=== PATIENT | female | born 1985 | race African-American/Black ===

== ENCOUNTER 2017-09-21 12:51 | Emergency (ER) | payer SELFPAY ==
[2017-09-21 12:52] VITALS: BP 165/98; PULSE 90; RESP 18; TEMP 97.8; O2SAT 97
--- NOTE | 2017-09-21 13:34 | PD ---
HPI Chief Complaint: Related Problem Time Seen by Provider: 13:34 Travel History International Travel<30 days: No Contact w/Intl Traveler<30days: No Traveled to known affect area: No History of Present Illness HPI 31-year-old female presents to the emergency department for evaluation of her . Patient took a positive test yesterday. Her last menstrual cycle was "sometime in July." She reports that with her previous pregnancies she got due to her blood type. She denies any abdominal pain. No vaginal bleeding or discharge. She has no other symptoms to report. PFSH Past Medical History Medical History: Denies Significant Hx ?: LMP: Beginning of July Social History Alcohol Use: No Tobacco Use: No Substance Use: No Allergies-Medications (Allergen,Severity, Reaction): Coded Allergies: No Known Allergies (Unverified , 09/21/17) Reported Meds & Prescriptions Reported Meds & Active Scripts Active Se-Sherry 19 29-1 mg ( Vit W/ Docusate-Fe Fu) 29 Mg Iron-1 Mg-25 Mg Tab 1 Tab PO DAILY Keflex (Cephalexin) 500 Mg Cap 500 Mg PO Q12H 7 Days Review of Systems Except as stated in HPI: all other systems reviewed are Neg Physical Exam Narrative GENERAL: Well-nourished female patient, ambulatory no acute distress. SKIN: Focused skin assessment warm/dry. HEAD: Atraumatic. Normocephalic. EYES: Pupils equal and round. No scleral icterus. No injection or drainage. ENT: No nasal bleeding or discharge. Mucous membranes pink and moist. NECK: Trachea midline. No JVD. CARDIOVASCULAR: Regular rate and rhythm. No murmur appreciated. RESPIRATORY: No accessory muscle use. Clear to auscultation. Breath sounds equal bilaterally. GASTROINTESTINAL: Abdomen soft, non-tender, nondistended. Hepatic and splenic margins not palpable. MUSCULOSKELETAL: No obvious deformities. No clubbing. No cyanosis. No edema. NEUROLOGICAL: Awake and alert. No obvious cranial nerve deficits. Motor grossly within normal limits. Normal speech. PSYCHIATRIC: Appropriate mood and affect; insight and judgment normal. Data Data Last Documented VS Vital Signs Date Time Temp Pulse Resp B/P (MAP) Pulse Ox O2 Delivery O2 Flow Rate FiO2 09/21/17 14:40 09/21/17 12:52 97.8 90 18 97 Orders Orders Beta Hcg (Quant/Titer) (09/21/17 13:04) Complete Blood Count With Diff (09/21/17 13:04) Basic Metabolic Panel (Bmp) (09/21/17 13:04) Complete Rh (09/21/17 13:04) Urinalysis - C+S If Indicated (09/21/17 13:04) Ed Urine Pregnancytest Poc (09/21/17 13:04) Urine Culture (09/21/17 13:10) Ed Poc Ultrasound (09/21/17 ) Ed Discharge Order (09/21/17 14:21) Labs Laboratory Tests Test 09/21/17 13:10 White Blood Count 4.8 TH/MM3 Red Blood Count 3.94 MIL/MM3 Hemoglobin 12.5 GM/DL Hematocrit 36.9 % Mean Corpuscular Volume 93.6 FL Mean Corpuscular Hemoglobin 31.6 PG Mean Corpuscular Hemoglobin Concent 33.8 % Red Cell Distribution Width 14.6 % Platelet Count 192 TH/MM3 Mean Platelet Volume 9.4 FL Neutrophils (%) (Auto) 65.0 % Lymphocytes (%) (Auto) 23.2 % Monocytes (%) (Auto) 8.6 % Eosinophils (%) (Auto) 2.4 % Basophils (%) (Auto) 0.8 % Neutrophils # (Auto) 3.1 TH/MM3 Lymphocytes # (Auto) 1.1 TH/MM3 Monocytes # (Auto) 0.4 TH/MM3 Eosinophils # (Auto) 0.1 TH/MM3 Basophils # (Auto) 0.0 TH/MM3 CBC Comment DIFF FINAL Differential Comment Urine Color YELLOW Urine Turbidity HAZY Urine pH 6.5 Urine Specific [place] 1.021 Urine Protein NEG mg/dL Urine Glucose (UA) NEG mg/dL Urine Ketones NEG mg/dL Urine Occult Blood SMALL Urine Nitrite NEG Urine Bilirubin NEG Urine Urobilinogen LESS THAN 2.0 MG/DL Urine Leukocyte Esterase MOD Urine RBC 3 /hpf Urine WBC 18 /hpf Urine Squamous Epithelial Cells 2 /hpf Urine Bacteria OCC /hpf Urine Mucus FEW /lpf Microscopic Urinalysis Comment CULTURE INDICATED Blood Urea Nitrogen 7 MG/DL Creatinine 0.63 MG/DL Random Glucose 86 MG/DL Calcium Level 8.4 MG/DL Sodium Level 138 MEQ/L Potassium Level 3.5 MEQ/L Chloride Level 107 MEQ/L Carbon Dioxide Level 23.7 MEQ/L Anion Gap 7 MEQ/L Estimat Glomerular Filtration Rate 133 ML/MIN Human Chorionic Gonadotropin, Quant 17197 MIU/ML [facility] Medical Decision Making Medical Screen Exam Complete: Yes Emergency Medical Condition: Yes Medical Record Reviewed: Yes Differential Diagnosis intrauterine versus ectopic versus UTI versus normal exam Narrative Course 31-year-old female presents to emergency department for evaluation of possible after taking an at home test yesterday. Patient appears without distress. Abdominal exam is benign. Laboratory Tests Test 09/21/17 13:10 White Blood Count 4.8 TH/MM3 Red Blood Count 3.94 MIL/MM3 Hemoglobin 12.5 GM/DL Hematocrit 36.9 % Mean Corpuscular Volume 93.6 FL Mean Corpuscular Hemoglobin 31.6 PG Mean Corpuscular Hemoglobin Concent 33.8 % Red Cell Distribution Width 14.6 % Platelet Count 192 TH/MM3 Mean Platelet Volume 9.4 FL Neutrophils (%) (Auto) 65.0 % Lymphocytes (%) (Auto) 23.2 % Monocytes (%) (Auto) 8.6 % Eosinophils (%) (Auto) 2.4 % Basophils (%) (Auto) 0.8 % Neutrophils # (Auto) 3.1 TH/MM3 Lymphocytes # (Auto) 1.1 TH/MM3 Monocytes # (Auto) 0.4 TH/MM3 Eosinophils # (Auto) 0.1 TH/MM3 Basophils # (Auto) 0.0 TH/MM3 CBC Comment DIFF FINAL Differential Comment Urine Color YELLOW Urine Turbidity HAZY Urine pH 6.5 Urine Specific [place] 1.021 Urine Protein NEG mg/dL Urine Glucose (UA) NEG mg/dL Urine Ketones NEG mg/dL Urine Occult Blood SMALL Urine Nitrite NEG Urine Bilirubin NEG Urine Urobilinogen LESS THAN 2.0 MG/DL Urine Leukocyte Esterase MOD Urine RBC 3 /hpf Urine WBC 18 /hpf Urine Squamous Epithelial Cells 2 /hpf Urine Bacteria OCC /hpf Urine Mucus FEW /lpf Microscopic Urinalysis Comment CULTURE INDICATED Blood Urea Nitrogen 7 MG/DL Creatinine 0.63 MG/DL Random Glucose 86 MG/DL Calcium Level 8.4 MG/DL Sodium Level 138 MEQ/L Potassium Level 3.5 MEQ/L Chloride Level 107 MEQ/L Carbon Dioxide Level 23.7 MEQ/L Anion Gap 7 MEQ/L Estimat Glomerular Filtration Rate 133 ML/MIN Human Chorionic Gonadotropin, Quant [id number] MIU/ML Lab Work is without acute concern. HCG is 69,720. Bedside [id number] ultrasound is done by my attending physician, please refer her documentation for details surrounding this. Patient is discharged follow-up with [facility]. She is encouraged to return immediately with any acute worsening symptoms. Diagnosis Primary Impression: Qualified Codes: Z3A.08 - 8 weeks gestation of Additional Impression: UTI (urinary tract infection) Qualified Codes: N30.00 - Acute cystitis without hematuria Referrals: Content Editor Primary Care Physician Patient Instructions: General Instructions, (ED) Additional Instructions: Follow-up with an [facility] Follow-up primary care provider Return immediately to the emergency department with any acute worsening of symptoms Med/Other Pt SpecificInfo: Prescription(s) given Scripts Vit W/ Docusate-Fe Fu (Se- 29-1 mg) 29 Mg Iron-1 Mg-25 Mg Tab 1 TAB PO DAILY for Nutritional Supplement, #30 TAB 0 Refills Prov: Grace Rocha 09/21/17 Cephalexin (Keflex) 500 Mg Cap 500 MG PO Q12H for Infection for 7 Days, #14 CAP 0 Refills Prov: Grace Rocha 09/21/17 Disposition: 01 DISCHARGE HOME Condition: Stable Grace Rocha Sep 21, 2017 13:34
[2017-09-21 13:37] LABS: AUTOMATED NEUTROPHIL # 3.1 TH/MM3 (1.8-7.7); BASOPHIL % 0.8 % (0.0-2.0); EOSINOPHIL # 0.1 TH/MM3 (0-0.4); EOSINOPHIL % 2.4 % (0.0-4.0); HEMATOCRIT 36.9 % (35.0-46.0); HEMOGLOBIN 12.5 GM/DL (11.6-15.3); LYMPH % 23.2 % (9.0-44.0); LYMPHOCYTE # 1.1 TH/MM3 (1.0-4.8); MEAN CELL VOLUME 93.6 FL (80.0-100.0); MEAN CORPUSCULAR HEMOGLOBIN 31.6 PG (27.0-34.0); MEAN CORPUSCULAR HGB CONC 33.8 % (32.0-36.0); MEAN PLATELET VOLUME 9.4 FL (7.0-11.0); MONO % 8.6 % (0.0-8.0); MONOCYTE # 0.4 TH/MM3 (0-0.9); PLATELET COUNT 192 TH/MM3 (150-450); RED BLOOD COUNT 3.94 MIL/MM3 (4.00-5.30); RED CELL DISTRIBUTION WIDTH 14.6 % (11.6-17.2); WHITE BLOOD COUNT 4.8 TH/MM3 (4.0-11.0)
[2017-09-21 13:41] LABS: BACTERIA, URINE OCC /hpf; BILIRUBIN, URINE NEG (NEG); BLOOD, URINE SMALL (NEG); GLUCOSE,URINE NEG (NEG); KETONE, URINE NEG (NEG); MUCUS URINE FEW /lpf (OCC); NITRITE,URINE NEG (NEG); PH, URINE 6.5 (5.0-8.5); SQUAMOUS EPITHELIAL CELL URINE 2 /hpf (0-5); URINE COLOR YELLOW (YELLW/STRAW); URINE LEUKOCYTE ESTERASE MOD (NEG)
[2017-09-21 13:59] LABS: BICARBONATE 23.7 MEQ/L (21.0-32.0); CALCIUM 8.4 MG/DL (8.5-10.1); CREATININE 0.63 MG/DL (0.50-1.00)
[2017-09-21] MEDS ORDERED: SE-NTAB3 PO (14:24)
[2017-09-21] MEDS ORDERED: CEPH-460 PO (14:24)
--- NOTE | 2017-09-21 14:25 | PD ---
Physical Exam Date Seen by Provider: Sep 21, 2017 Time Seen by Provider: 14:24 Narrative 31-year-old male came to the emergency room with history of . She was seen by the nurse practitioner and I'm supervising her. Please refer to her regarding details on history and physical. I've done a bedside ultrasound. Please refer to my procedure note. Data Data Last Documented VS Orders Orders Beta Hcg (Quant/Titer) (09/21/17 13:04) Complete Blood Count With Diff (09/21/17 13:04) Basic Metabolic Panel (Bmp) (09/21/17 13:04) Complete Rh (09/21/17 13:04) Urinalysis - C+S If Indicated (09/21/17 13:04) Ed Urine Pregnancytest Poc (09/21/17 13:04) Urine Culture (09/21/17 13:10) Ed Poc Ultrasound (09/21/17 ) Ed Discharge Order (09/21/17 14:21) Labs Laboratory Tests Test 09/21/17 13:10 White Blood Count 4.8 TH/MM3 Red Blood Count 3.94 MIL/MM3 Hemoglobin 12.5 GM/DL Hematocrit 36.9 % Mean Corpuscular Volume 93.6 FL Mean Corpuscular Hemoglobin 31.6 PG Mean Corpuscular Hemoglobin Concent 33.8 % Red Cell Distribution Width 14.6 % Platelet Count 192 TH/MM3 Mean Platelet Volume 9.4 FL Neutrophils (%) (Auto) 65.0 % Lymphocytes (%) (Auto) 23.2 % Monocytes (%) (Auto) 8.6 % Eosinophils (%) (Auto) 2.4 % Basophils (%) (Auto) 0.8 % Neutrophils # (Auto) 3.1 TH/MM3 Lymphocytes # (Auto) 1.1 TH/MM3 Monocytes # (Auto) 0.4 TH/MM3 Eosinophils # (Auto) 0.1 TH/MM3 Basophils # (Auto) 0.0 TH/MM3 CBC Comment DIFF FINAL Differential Comment Urine Color YELLOW Urine Turbidity HAZY Urine pH 6.5 Urine Specific [place] 1.021 Urine Protein NEG mg/dL Urine Glucose (UA) NEG mg/dL Urine Ketones NEG mg/dL Urine Occult Blood SMALL Urine Nitrite NEG Urine Bilirubin NEG Urine Urobilinogen LESS THAN 2.0 MG/DL Urine Leukocyte Esterase MOD Urine RBC 3 /hpf Urine WBC 18 /hpf Urine Squamous Epithelial Cells 2 /hpf Urine Bacteria OCC /hpf Urine Mucus FEW /lpf Microscopic Urinalysis Comment CULTURE INDICATED Blood Urea Nitrogen 7 MG/DL Creatinine 0.63 MG/DL Random Glucose 86 MG/DL Calcium Level 8.4 MG/DL Sodium Level 138 MEQ/L Potassium Level 3.5 MEQ/L Chloride Level 107 MEQ/L Carbon Dioxide Level 23.7 MEQ/L Anion Gap 7 MEQ/L Estimat Glomerular Filtration Rate 133 ML/MIN Human Chorionic Gonadotropin, Quant 99517 MIU/ML MDM Supervised Visit with [facility]: Yes Procedures Procedure Narrative Emergency Department Pelvic ultrasound was performed with patient consent. The curvilinear probe was used in the transverse and sagittal views within the suprapubic region revealing single, live intrauterine . heart rate was 169 bpm. See this measures 8 week by crown-rump length. Scripts Vit W/ Docusate-Fe Fu (Se-Sherry 19 29-1 mg) 29 Mg Iron-1 Mg-25 Mg Tab 1 TAB PO DAILY for Nutritional Supplement, #30 TAB 0 Refills Prov: Grace Rocha 09/21/17 Cephalexin (Keflex) 500 Mg Cap 500 MG PO Q12H for Infection for 7 Days, #14 CAP 0 Refills Prov: Grace Rocha 09/21/17 Bree Oquendo MD Sep 21, 2017 14:25
== END 2017-09-21 14:40 | disposition home or self-care (01) ==
LOC: NEPD 12:51
DX: O23.41 Unspecified infection of urinary tract in pregnancy, first trimester (principal); B96.20 Unspecified Escherichia coli [E. coli] as the cause of diseases classified elsewhere; Z3A.08 8 weeks gestation of pregnancy; Z34.91 Encounter for supervision of normal pregnancy, unspecified, first trimester
CPT/HCPCS: 80048; 81001; 84702; 84703; 85025; 86901; 87077; 87086; 87186; 99285

== ENCOUNTER → 2017-11-01 | Outpatient (CLI) | payer OTHER ==
[~2017-11-01] MED LIST: CEPH-460 PO; SE-NTAB3 PO
== END ==
LOC: HPND 07:58
PROVIDERS: ATTEND Family Medicine
DX: Z34.92 Encounter for supervision of normal pregnancy, unspecified, second trimester (principal)
CPT/HCPCS: 76801

== ENCOUNTER 2017-11-19 15:11 | Emergency (ER) | payer OTHER ==
--- NOTE | 2017-11-19 16:07 | PD ---
HPI Chief Complaint 15 weeks Abdominal cramp 1 day Date Seen: Nov 19, 2017 Time Seen: 15:50 Travel History International Travel<30 Days: No Contact w/Intl Traveler<30Days: No Known Affected Area: No History of Present Illness HPI Pt is a 32 yo . Pt followed at [facility]. EDC 05-13-2018, makes her 15 weeks. Pt c/o abdominal cramping since last night. Pain LLQ and right upper thigh. c/o headache Denies urinary symptoms. No vaginal bleeding. Denies cough or nasal congestion. 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 ( vessel 'popped') Past Surgical History Surgical History: No Previous Surgery Family History Family History: Negative Social History Alcohol Use: No Tobacco Use: No Substance Abuse: No Allergies-Medications (Allergen,Severity, Reaction): Coded Allergies: No Known Allergies (Unverified , 11/19/17) Home Meds Active Scripts Vit W/ Docusate-Fe Fu (Se-Sherry 19 29-1 mg) 29 Mg Iron-1 Mg-25 Mg Tab, 1 TAB PO DAILY for Nutritional Supplement, #30 TAB 11 Refills Prov:Mike Fenton MD R2 10/26/17 Cephalexin (Keflex) 500 Mg Cap, 500 MG PO Q12H for Infection for 7 Days, #14 CAP 0 Refills Prov:Grace Rocha 09/21/17 Review of Systems Except as stated in HPI: all other systems reviewed are Neg Physical Exam Narrative GENERAL: Well-nourished, well-developed patient. SKIN: Warm and dry. HEAD: Normocephalic and atraumatic. EYES: No scleral icterus. No injection or drainage. ENT: No nasal drainage noted. Mucous membranes pink. Airway patent. NECK: Supple, trachea midline. No JVD. CARDIOVASCULAR: Regular rate and rhythm without murmurs, gallops, or rubs. RESPIRATORY: Breath sounds equal bilaterally. No accessory muscle use. BREASTS: Bilateral exam showed no masses , no retractions, no nipple discharge. ABDOMEN/GI: Abdomen soft, tender LLQ,, bowel sounds present, no rebound, no guarding No CVA tenderness Gravid to [16] weeks size Fundal Height: [-] GENITOURINARY: External Genitalia: intact and normal in appearance BUS glands: [wnl] Cervix: closed, long, no adnexal tenderness. FHT's: FHR 140s with doppler EXTREMITIES: No cyanosis or edema. BACK: Nontender without obvious deformity. No CVA tenderness. NEUROLOGICAL: Awake and alert. Motor and sensory grossly within normal limits. Five out of 5 muscle strength in all muscle groups. Normal speech. MDM Plan 32 yo at 16 weeks. Presents with 1 day h/o abdominal cramping mainly on left lower quadrant, migraine headache, right upper thigh pain. Pt denies any contact with flu. No respiratory symptoms Will check CBC/ UA CBC, UA wnl. FHR wnl by Doppler, no cervical change. Will discharge from OB ED. Pt to be cleared by Main ED. Diagnosis Diagnosis: Primary Impression: with 16 completed weeks gestation Additional Impression: Abdominal cramping affecting Disposition: 01 DISCHARGE HOME Condition: Stable Scripts Iunjausxxi-Fkfrxzghvrvzy-Fjtsdmgg (Fioricet) 50-300-40 Mg Cap 1-2 CAP PO Q6H Y for HEADACHE, #10 CAP 0 Refills Prov: Bairon Scales MD 11/19/17 Bairon Scales MD Nov 19, 2017 16:07
[2017-11-19] MEDS ORDERED: ACETAMIN 325 MG/BUTALBITAL 50 MG/CAFFEINE 40 MG TAB PO ONE (16:15)
[2017-11-19 16:26] LABS: BILIRUBIN, URINE NEG (NEG); BLOOD, URINE SMALL (NEG); GLUCOSE,URINE NEG (NEG); KETONE, URINE 10 mg/dL (NEG); MUCUS URINE FEW /lpf (OCC); NITRITE,URINE NEG (NEG); SQUAMOUS EPITHELIAL CELL URINE 4 /hpf (0-5); URINE COLOR YELLOW (YELLW/STRAW); URINE LEUKOCYTE ESTERASE NEG (NEG)
[2017-11-19 16:30] LABS: AUTOMATED NEUTROPHIL # 5.6 TH/MM3 (1.8-7.7); BASOPHIL % 0.2 % (0.0-2.0); EOSINOPHIL % 0.3 % (0.0-4.0); LYMPH % 3.1 % (9.0-44.0); LYMPHOCYTE # 0.2 TH/MM3 (1.0-4.8); MEAN CELL VOLUME 92.2 FL (80.0-100.0); MEAN CORPUSCULAR HEMOGLOBIN 31.7 PG (27.0-34.0); MEAN CORPUSCULAR HGB CONC 34.4 % (32.0-36.0); MEAN PLATELET VOLUME 9.1 FL (7.0-11.0); MONO % 7.4 % (0.0-8.0); MONOCYTE # 0.5 TH/MM3 (0-0.9); PLATELET COUNT 153 TH/MM3 (150-450); RED BLOOD COUNT 3.47 MIL/MM3 (4.00-5.30); RED CELL DISTRIBUTION WIDTH 13.7 % (11.6-17.2); WHITE BLOOD COUNT 6.3 TH/MM3 (4.0-11.0)
[2017-11-19] MEDS ORDERED: BUTA1CAP PO (16:39)
[2017-11-19] MEDS ORDERED: ZITHTAB PO (19:23)
== END 2017-11-19 16:58 | disposition home or self-care (01) ==
LOC: HOBED 15:11
DX: O26.892 Other specified pregnancy related conditions, second trimester (principal); R10.32 Left lower quadrant pain; M79.651 Pain in right thigh; R51 Headache; Z3A.16 16 weeks gestation of pregnancy
CPT/HCPCS: 81001; 85025; 99283

== ENCOUNTER 2017-11-19 17:21 | Emergency (ER) | payer OTHER ==
[~2017-11-19] VITALS: Ht 157.5 cm; Wt 97.0 kg
[~2017-11-19 17:21] MED LIST changes: +BUTA1CAP PO
[2017-11-19 17:22] VITALS: BP 124/59; PULSE 101; RESP 18; TEMP 98.2; O2SAT 99
[2017-11-19] MEDS ORDERED: ZITHTAB PO (19:23)
--- NOTE | 2017-11-19 19:23 | PD ---
HPI Chief Complaint: ENT Complaint Time Seen by Provider: 19:09 Travel History International Travel<30 days: No Contact w/Intl Traveler<30days: No Traveled to known affect area: No History of Present Illness HPI 32-year-old female complains of sore throat, coughing congestion, fever, right thigh pain. Patient states that sore throat and a cough and congestion and fever started about 2 days ago. Patient stated that she had fever up to 103 at home. Patient states that she is not having right thigh pain since last night. Patient denies any injury to that. Patient stated the pain became pain cramping pain localized to the right thigh anteriorly. Patient denies any pain radiation. Patient states that the pain is was good weightbearing. Patient has history of chronic left wrist pain that is not new. Patient was seen by OB department today for abdominal pain and was discharged from the OB department. Patient was advised to go to ED for other symptoms. Patient denies any chest pain or shortness of breath. Patient's 15 week . PFSH Past Medical History ?: LMP: 07/19 Social History Alcohol Use: No Tobacco Use: No Substance Use: No Allergies-Medications (Allergen,Severity, Reaction): Coded Allergies: No Known Allergies (Unverified , 11/19/17) Reported Meds & Prescriptions Reported Meds & Active Scripts Active No Active Prescriptions or Reported Medications Review of Systems General / Constitutional: Positive: Fever Eyes: No: Visual changes HENT: Positive: Sore Throat, Congestion, No: Headaches Cardiovascular: No: Chest Pain or Discomfort Respiratory: Positive: Cough, No: Shortness of Breath Gastrointestinal: No: Abdominal Pain Genitourinary: No: Dysuria Musculoskeletal: Positive: Pain Skin: No Rash Neurologic: No: Weakness Psychiatric: No: Depression Endocrine: No: Polydipsia Hematologic/Lymphatic: No: Easy Bruising Physical Exam Narrative GENERAL: Well-nourished, well-developed patient. SKIN: Focused skin assessment warm/dry. HEAD: Normocephalic. EYES: No scleral icterus. No injection or drainage. TM: Clear. Throat: Mouth erythematous. NECK: Supple, trachea midline. No JVD or lymphadenopathy. No meningismus CARDIOVASCULAR: Regular rate and rhythm without murmurs, gallops, or rubs. RESPIRATORY: Breath sounds equal bilaterally. No accessory muscle use. GASTROINTESTINAL: Abdomen soft, non-tender, nondistended. MUSCULOSKELETAL: No cyanosis, or edema. Mild tenderness on palpation anterior right thigh area. No redness or swelling or deformity noted. No tenderness on palpation posterior aspect of the right thigh. No evidence of DVT. BACK: Nontender without obvious deformity. No CVA tenderness. Data Data Last Documented VS Vital Signs Date Time Temp Pulse Resp B/P (MAP) Pulse Ox O2 Delivery O2 Flow Rate FiO2 11/19/17 17:22 98.2 101 18 124/59 (80) 99 MDM Medical Decision Making Medical Screen Exam Complete: Yes Emergency Medical Condition: Yes Differential Diagnosis Differential diagnosis including URI, viral syndrome, flu, otitis media, pharyngitis, bronchitis, pneumonia, musculoskeletal pain, DVT. Narrative Course 32-year-old female with fever, sore throat, coughing congestion. Patient also has anterior right thigh pain. Nontraumatic. Diagnosis Primary Impression: Bronchitis Additional Impressions: Viral syndrome Muscle strain of right thigh Qualified Codes: S76.911A - Strain of unspecified muscles, fascia and tendons at thigh level, right thigh, initial encounter Patient Instructions: General Instructions Additional Instructions: Z-Ridge as directed. Tylenol for aches and pain and fever. Robitussin as needed for cough. Follow-up with personal physician. Return if worse. Med/Other Pt SpecificInfo: Prescription(s) given Scripts Azithromycin (Zithromax Z-Ridge) 250 Mg Dspk 250 MG PO DIRECTED for Infection, #1 DSPK 0 Refills 500 MG (2 tabs) day 1, then 1 tab days 2-5. Prov: Krishna Martins MD 11/19/17 Disposition: 01 DISCHARGE HOME Condition: Stable Krishna Martins MD Nov 19, 2017 19:23
== END 2017-11-19 19:37 | disposition home or self-care (01) ==
LOC: NEPD 17:21
DX: J40 Bronchitis, not specified as acute or chronic (principal); B34.9 Viral infection, unspecified; S76.911A Strain of unspecified muscles, fascia and tendons at thigh level, right thigh, initial encounter; X58.XXXA Exposure to other specified factors, initial encounter; Z3A.15 15 weeks gestation of pregnancy; Z34.92 Encounter for supervision of normal pregnancy, unspecified, second trimester
CPT/HCPCS: 99283

== ENCOUNTER → 2017-11-29 | Outpatient (CLI) | payer OTHER ==
[~2017-11-29] MED LIST changes: -BUTA1CAP PO; -CEPH-460 PO; -SE-NTAB3 PO; +ZITHTAB PO
== END ==
LOC: HPND 08:02
PROVIDERS: ATTEND Family Medicine
DX: Z36.2 Encounter for other antenatal screening follow-up (principal)
CPT/HCPCS: 76805